=== PATIENT | male | born 1985 | race American Indian/Alaskan Native ===

== ENCOUNTER 2019-02-22 22:12 | Emergency (ER) | payer OTHER ==
[2019-02-23] MEDS ORDERED: DELTASONE PO ONE (03:36)
[2019-02-23] MEDS ORDERED: IBUPROFEN PO ONE (03:36)
--- NOTE | 2019-02-23 03:42 | Emergency Department Report ---
ED General Adult HPI - General Chief complaint: Nausea/Vomiting/Diarrhea Stated complaint: SOB/BACK PAIN/HEAD PAINS/COLD CHILLS Time Seen by Provider: 02/23/19 03:36 Source: patient Mode of arrival: Ambulatory Limitations: No Limitations - History of Present Illness Initial comments: Patient state that 3-year-old -Maced[place] male with a history of asthma and bronchitis who presents tonight for symptoms of same and low back pain is no dysuria no frequency no urgency there's been no fall or injury or trauma patient states back pain is chronic condition for the last 14 years , pt state he is here tonight for medication refill. pt denies sob no weezing or truam Onset/Timin -: days(s) Radiation: non-radiation Severity scale (0 -10): 4 Quality: sharp, dull Consistency: intermittent Improves with: movement Worsens with: rest Associated Symptoms: cough Treatments Prior to Arrival: none - Related Data Previous Rx's Medication Instructions Recorded Last Taken Type Cyclobenzaprine [Flexeril] 10 mg PO BID PRN #30 tablet 08/02/16 Unknown Rx Diclofenac Sodium 75 mg PO BID PRN #20 tablet. 08/02/16 Unknown Rx Cyclobenzaprine [Flexeril] 10 mg PO TID PRN 20 Days #30 tablet 02/23/19 Unknown Rx Menthol/Camphor [[place] 1 gm TP QID PRN 10 Days #1 tube 02/23/19 Unknown Rx Ointment] Naproxen [Naprosyn] 500 mg PO BID #30 tablet 02/23/19 Unknown Rx Allergies Allergy/AdvReac Type Severity Reaction Status Date / Time iodine Allergy Anaphylaxis Verified 08/02/16 19:20 shellfish derived Allergy Anaphylaxis Verified 08/02/16 19:20 ED Review of Systems ROS: Stated complaint: SOB/BACK PAIN/HEAD PAINS/COLD CHILLS Other details as noted in HPI Constitutional: denies: chills, fever Eyes: denies: eye pain, eye discharge, vision change ENT: denies: ear pain, throat pain Respiratory: cough. denies: shortness of breath, wheezing Cardiovascular: denies: chest pain, palpitations, dyspnea on exertion, edema, syncope, paroxysmal nocturnal dyspnea Endocrine: no symptoms reported Gastrointestinal: denies: abdominal pain, nausea, diarrhea Genitourinary: denies: urgency, dysuria Musculoskeletal: back pain. denies: joint swelling, arthralgia Skin: denies: rash, lesions Neurological: denies: headache, weakness, numbness, paresthesias, confusion, abnormal gait, vertigo Psychiatric: denies: anxiety, depression Hematological/Lymphatic: denies: easy bleeding, easy bruising ED Past Medical Hx - Past Medical History Hx Asthma: Yes Additional medical history: chronic back pain - Social History Smoking Status: Never Smoker Substance Use Type: None - Medications Home Medications: Home Medications Medication Instructions Recorded Confirmed Last Taken Type Cyclobenzaprine [Flexeril] 10 mg PO BID PRN #30 tablet 08/02/16 Unknown Rx Diclofenac Sodium 75 mg PO BID PRN #20 tablet.dr 08/02/16 Unknown Rx Cyclobenzaprine [Flexeril] 10 mg PO TID PRN 20 Days #30 tablet 02/23/19 Unknown Rx Menthol/Camphor [[place] 1 gm TP QID PRN 10 Days #1 tube 02/23/19 Unknown Rx Ointment] Naproxen [Naprosyn] 500 mg PO BID #30 tablet 02/23/19 Unknown Rx ED Physical Exam - General Limitations: No Limitations General appearance: alert, in no apparent distress - Head Head exam: Present: atraumatic, normocephalic, normal inspection, other - Eye Eye exam: Present: normal appearance, PERRL, EOMI Pupils: Present: normal accommodation - ENT ENT exam: Present: normal exam, normal orophraynx, mucous membranes moist, normal external ear exam - Neck Neck exam: Present: normal inspection, meningismus, full ROM. Absent: tenderness, lymphadenopathy, thyromegaly - Respiratory Respiratory exam: Present: normal lung sounds bilaterally. Absent: respiratory distress, wheezes, stridor, chest wall tenderness - Cardiovascular Cardiovascular Exam: Present: regular rate, normal rhythm, normal heart sounds. Absent: gallop - GI/Abdominal GI/Abdominal exam: Present: soft, tenderness, normal bowel sounds. Absent: guarding, rebound, mass, bruit, hernia - Rectal Rectal exam: Present: deferred - exam: Present: normal inspection - Extremities Exam Extremities exam: Present: normal inspection, full ROM, normal capillary refill. Absent: tenderness, pedal edema, joint swelling, calf tenderness - Back Exam Back exam: Present: normal inspection, full ROM. Absent: CVA tenderness (R), CVA tenderness (L), muscle spasm, paraspinal tenderness - Neurological Exam Neurological exam: Present: alert, oriented X3, CN II-XII intact, normal gait, reflexes normal - Psychiatric Psychiatric exam: Present: normal affect, normal mood - Skin Skin exam: Present: warm, dry, intact, normal color. Absent: rash ED Course Vital Signs 02/22/19 02/22/19 22:20 23:33 Temperature 99.0 F 99.0 F Pulse Rate 103 H 88 Respiratory 18 18 Rate Blood Pressure 126/80 124/80 O2 Sat by Pulse 98 98 Oximetry Critical care attestation.: If time is entered above; I have spent that time in minutes in the direct care of this critically ill patient, excluding procedure time. ED Disposition Clinical Impression: URI (upper respiratory infection) Qualifiers: URI type: unspecified viral URI Qualified Code(s): J06.9 - Acute upper respiratory infection, unspecified Disposition: DC/TX-06 HOME UNDER HOME HLTH Is pt being admited?: No Does the pt Need Aspirin: No Condition: Good Instructions: Acute Bronchitis (ED), Chronic Bronchitis (ED) Prescriptions: Cyclobenzaprine [Flexeril] 10 mg PO TID PRN 20 Days #30 tablet PRN Reason: Muscle Spasm Naproxen [Naprosyn] 500 mg PO BID #30 tablet Menthol/Camphor [[place] Ointment] 1 gm TP QID PRN 10 Days #1 tube PRN Reason: pain Referrals: [facility] [Provider Group] - 3-5 Days Forms: Work/School Release Form(ED) Time of Disposition: 04:06
[2019-02-23 04:33] VITALS: BP 126/81
== END 2019-02-23 04:32 | disposition home health service (06) ==
LOC: ED 22:12
DX: J06.9 Acute upper respiratory infection, unspecified (principal); J45.909 Unspecified asthma, uncomplicated; G89.29 Other chronic pain; Z91.013 Allergy to seafood; Z91.040 Latex allergy status
CPT/HCPCS: 99282; J7512

== ENCOUNTER 2019-05-29 22:32 | Emergency (ER) | payer SELFPAY ==
[2019-05-29 23:25] VITALS: BP 133/73
[2019-05-30] MEDS ORDERED: BACTRIM DS PO ONE (01:22)
[2019-05-30] MEDS ORDERED: NORCO 5/325 PO ONE (01:22)
--- NOTE | 2019-05-30 01:45 | XRay Report ---
RIGHT LOWER LEG 2 VIEWS INDICATION / CLINICAL INFORMATION: Right jose pain, swelling and redness for 4 days. COMPARISON: None available. FINDINGS: BONES / JOINT(S): No acute fracture or subluxation. No significant arthritis. SOFT TISSUES: There is mild soft tissue swelling at the level of the mid tibial shaft anteriorly with out focal mass or soft tissue gas. I do not identify a radiopaque foreign body. ADDITIONAL FINDINGS: None. IMPRESSION: Mild soft tissue swelling without acute osseous abnormality. Signer Name: Raghavendra Evans MD Signed: 05/30/2019 1:40 AM Workstation Name: [id number]
--- NOTE | 2019-05-30 02:00 | Emergency Department Report ---
HPI - General Chief Complaint: Extremity Injury, Lower Time Seen by Provider: 05/30/19 01:21 - HPI HPI: 33 year-old -Sammar[place] male presents to the emergency department with a complaint of right leg pain and swelling for the past 3 days. Initially the patient thought that he may have been stung or bitten by something while he was working out in the yard. He also thought maybe it could be an allergic reaction. At first he had a small pimple-like lesion to the right distal jose and some itching. However, over the next few days, he has had swelling of the leg and the previous pimple-like lesion has now grown in size, become painful, red and warm. He's been trying some cold compresses which does help with the leg swelling but has not improved the lesion. The patient says that he feels discomfort all the way up to his upper thigh. He has a past medical history of asthma and some chronic back pain. He has taken some Benadryl without much relief. No recent travel or sick contacts at home. ED Past Medical Hx - Past Medical History Previous Medical History?: Yes Hx Asthma: Yes Additional medical history: chronic back pain - Surgical History Past Surgical History?: No - Social History Smoking Status: Never Smoker Substance Use Type: None - Medications Home Medications: Home Medications Medication Instructions Recorded Confirmed Last Taken Type Cyclobenzaprine [Flexeril] 10 mg PO BID PRN #30 tablet 08/02/16 Unknown Rx Diclofenac Sodium 75 mg PO BID PRN #20 tablet. 08/02/16 Unknown Rx ALBUTEROL Inhaler(NF) [VENTOLIN 2 puff IH QID PRN #1 inha 02/23/19 Unknown Rx Inhaler(NF)] Cyclobenzaprine [Flexeril] 10 mg PO TID PRN 20 Days #30 tablet 02/23/19 Unknown Rx Menthol/Camphor [[place] 1 gm TP QID PRN 10 Days #1 tube 02/23/19 Unknown Rx Ointment] Naproxen [Naprosyn] 500 mg PO BID #30 tablet 02/23/19 Unknown Rx HYDROcodone/APAP 5-325 [[place] 1 each PO Q6HR PRN #10 tablet 05/30/19 Unknown Rx 5/325] Sulfamethoxazole/Trimethoprim 1 each PO BID #14 tablet 05/30/19 Unknown Rx [Bactrim DS TAB] ED Review of Systems ROS: Stated complaint: SPIDER BITE ON LEG Other details as noted in HPI Comment: All other systems reviewed and negative Constitutional: denies: chills, fever Musculoskeletal: arthralgia, myalgia Skin: rash, lesions, pruritus Physical Exam - Physical Exam Vital Signs: Vital Signs 05/29/19 23:21 Temperature 98.4 F Pulse Rate 95 H Respiratory 18 Rate Blood Pressure 133/73 O2 Sat by Pulse 98 Oximetry Physical Exam: GENERAL: The patient is well-developed well-nourished. HENT: Normocephalic. Atraumatic. Patient has moist mucous membranes. EYES: Extraocular motions are intact. NECK: Supple. Trachea is midline. CHEST/LUNGS: Clear to auscultation. There is no respiratory distress noted. HEART/CARDIOVASCULAR: Regular. There is no tachycardia. There is no murmur. ABDOMEN: Abdomen is soft, nontender. Patient has normal bowel sounds. There is no abdominal distention. SKIN: There is some nonpitting swelling of the distal right lower extremity. The patient has a rash or lesion to the distal anterior tib-fib that is slightly elevated, erythematous, warm and is about 4 inches in its greatest diameter. There is no underlying fluctuance. Some of the surrounding portion of this lesion appears to have a blisterlike or bulla appearance but is negative for [place]. NEURO: The patient is awake, alert, and oriented. The patient is cooperative. The patient has no focal neurologic deficits. The patient has normal speech. MUSCULOSKELETAL: There is some tenderness to palpation to the right distal leg where the patient has this rash or lesion. +2 over 4 dorsalis pedis pulse and capillary refill less than 2 seconds to the affected right lower extremity. ED Course Vital Signs 05/29/19 23:21 Temperature 98.4 F Pulse Rate 95 H Respiratory 18 Rate Blood Pressure 133/73 O2 Sat by Pulse 98 Oximetry ED Medical Decision Making - Lab Data Result diagrams: 05/30/19 01:58 - Radiology Data Radiology results: image reviewed interpreted by me: X-ray of right tib-fib does not show any fracture, dislocation, subcutaneous gas or signs of osteomyelitis. - Medical Decision Making Patient appears to have some type of cellulitis and abscess to the right distal anterior tib-fib. X-ray does not show any signs of osteomyelitis or subcutaneous gas. He had a CBC that does not show any leukocytosis. Vital signs stable including being afebrile. He does not appear to have any systemic infection at this time. The patient has some complaints of pain towards the up per thigh and groin. This may be secondary to the soft tissue swelling in the distal lower extremity or evidence of some lymphadenopathy. However the patient will be set up to have a right lower extremity venous Doppler tomorrow. If positive, he will be redirected to the emergency department. If negative, he has been given a referral for primary care and dermatology. He has been placed on antibiotics. He has been instructed to return to the emergency department with any worsening of his symptoms or any acute distress. - Differential Diagnosis abscess, cellulitis, osteomyelitis, dermatitis Critical Care Time: No Critical care attestation.: If time is entered above; I have spent that time in minutes in the direct care of this critically ill patient, excluding procedure time. ED Disposition Clinical Impression: Cellulitis of right leg without foot, Abscess of leg, right Disposition: DC- TO HOME OR SELFCARE Is pt being admited?: No Condition: Stable Instructions: Cellulitis (ED), Abscess (ED) Additional Instructions: He will be contacted tomorrow by the instrumentation and controls technician for a time to return to get the Doppler ultrasound done of your right leg to rule out a blood clot. It appears positive for a blood clot, called a DVT, then you will be redirected to the emergency department after this imaging study is completed. If negative, he will need to follow up with a primary care physician and/or fire management officer. Take the antibiotics as prescribed. Return to the emergency Department with any worsening of your symptoms, including increased pain, new pain, increased swelling or redness, development of fever, or with any acute distress. You have been prescribed a medication that is sedating and therefore should not be taken prior to driving, working, and responsible for children and in no way s hould be mixed with alcohol of any quantity. Prescriptions: Sulfamethoxazole/Trimethoprim [Bactrim DS TAB] 1 each PO BID #14 tablet HYDROcodone/APAP 5-325 [[place] 5/325] 1 each PO Q6HR PRN #10 tablet PRN Reason: Pain Referrals: [facility] [Outside] - 2-3 Days TUNDE LÓPEZ MD [Staff Physician] - 2-3 Days EVERETTE LIVE MD [Staff Physician] - 2-3 Days Time of Disposition: 02:12
[2019-05-30 02:08] LABS: Basophils % (Auto) 0.5 % (0.0-1.8); Eosinophils # (Auto) 0.1 K/mm3 (0.0-0.4); Eosinophils % (Auto) 1.6 % (0.0-4.3); Hematocrit 43.2 % (35.5-45.6); Hemoglobin 14.5 gm/dl (11.8-15.2); Lymphocytes # (Auto) 1.8 K/mm3 (1.2-5.4); Lymphocytes % (Auto) 33.5 % (13.4-35.0); Mean Corpuscular HGB Conc 34 % (32-34); Mean Corpuscular Volume 91 fl (84-94); Monocytes # (Auto) 0.6 K/mm3 (0.0-0.8); Monocytes % (Auto) 11.1 % (0.0-7.3); Platelet Count 169 K/mm3 (140-440); Red Blood Count 4.76 M/mm3 (3.65-5.03); Red Cell Distribution Width 13.2 % (13.2-15.2)
== END 2019-05-30 02:28 | disposition home or self-care (01) ==
LOC: ED 22:32
DX: L03.115 Cellulitis of right lower limb (principal); J45.909 Unspecified asthma, uncomplicated; M54.5 Low back pain; G89.29 Other chronic pain; Z79.899 Other long term (current) drug therapy; Z91.041 Radiographic dye allergy status; Z91.013 Allergy to seafood
CPT/HCPCS: 36415; 85025; 99284

== ENCOUNTER 2019-06-04 14:26 | Outpatient (CLI) | payer SELFPAY ==
--- NOTE | 2019-06-04 15:33 | Vascular Lab Report ---
DUPLEX DOPPLER LOWER EXTREMITY VEINS, RIGHT INDICATION: Right lower extremity pain and swelling. TECHNIQUE: Duplex doppler imaging was performed through the veins of the right lower extremity using venous compression and other maneuvers. COMPARISON: No relevant prior imaging study available. FINDINGS: Right Common femoral vein: Negative. Right Superficial femoral vein: Negative. Right Popliteal vein: Negative. Right Calf veins: Negative. Additional findings: None.. IMPRESSION: No sonographic evidence for DVT in the right lower extremity. Signer Name: Miky Gomez Jr, MD Signed: 06/04/2019 3:28 PM Workstation Name: [id number]
== END 2019-06-04 14:27 | disposition home or self-care (01) ==
LOC: VAS 14:26
PROVIDERS: ATTEND Emergency Medicine
DX: T63.301A Toxic effect of unspecified spider venom, accidental (unintentional), initial encounter (principal); L02.415 Cutaneous abscess of right lower limb; J45.909 Unspecified asthma, uncomplicated; Y93.89 Activity, other specified; Y99.8 Other external cause status; Y92.89 Other specified places as the place of occurrence of the external cause

== ENCOUNTER 2019-09-05 05:32 | Emergency (ER) | payer SELFPAY ==
--- NOTE | 2019-09-05 06:26 | Emergency Department Report ---
ED General Adult HPI - General Chief complaint: Anxiety Stated complaint: BODY PAIN/CHEST PAIN Time Seen by Provider: 09/05/19 06:09 Source: patient Mode of arrival: Ambulatory Limitations: No Limitations - History of Present Illness Initial comments: This is a 33 year old man states he drove himself here because he has "flu symptoms". He states that he was held in [facility] yesterday. Wrist restraints were used. He states that he works for [employer] through an agency. He states that while he was at the alf he was told that he is not associated with the Police Department. He was released at about 4:00 in the afternoon last night. Other than the wrist restraints and tingling in that area he reports no other "assault". His flu symptoms include nonproductive cough, headache, myalgias. He's felt as if he had a fever but did not measure it. He denies a history of HIV but states he has no recent testing. He states he has lymph nodes in the back of his neck which "flareup" when he gets "sick". He does not report nausea vomiting photophobia or neck stiffness. His headache pain is mild this time. He reports no history of serious bacterial infection or other illness. Does admit to previous prescription for a "blue and white mood stabilizer". He states he does not take this because of the way it makes him feel. He denies any psychiatric hospitalization. He is appropriate, cooperative with no HI or SI. -: hour(s) Location: head Radiation: non-radiation Quality: aching ([id number]) Consistency: intermittent Improves with: none Worsens with: none Associated Symptoms: denies other symptoms, cough (nonproductive) Treatments Prior to Arrival: none - Related Data Previous Rx's Medication Instructions Recorded Last Taken Type Cyclobenzaprine [Flexeril] 10 mg PO BID PRN #30 tablet 08/02/16 Unknown Rx Diclofenac Sodium 75 mg PO BID PRN #20 tablet. 08/02/16 Unknown Rx ALBUTEROL Inhaler(NF) [VENTOLIN 2 puff IH QID PRN #1 inha 02/23/19 Unknown Rx Inhaler(NF)] Cyclobenzaprine [Flexeril] 10 mg PO TID PRN 20 Days #30 tablet 02/23/19 Unknown Rx Menthol/Camphor [[place] 1 gm TP QID PRN 10 Days #1 tube 02/23/19 Unknown Rx Ointment] Naproxen [Naprosyn] 500 mg PO BID #30 tablet 02/23/19 Unknown Rx HYDROcodone/APAP 5-325 [[place] 1 each PO Q6HR PRN #10 tablet 05/30/19 Unknown Rx 5/325] Sulfamethoxazole/Trimethoprim 1 each PO BID #14 tablet 05/30/19 Unknown Rx [Bactrim DS TAB] Sulfamethoxazole/Trimethoprim 1 each PO BID #14 tablet 09/05/19 Unknown Rx [Bactrim DS TAB] Allergies Allergy/AdvReac Type Severity Reaction Status Date / Time iodine Allergy Anaphylaxis Verified 08/02/16 19:20 shellfish derived Allergy Anaphylaxis Verified 08/02/16 19:20 ED Review of Systems ROS: Stated complaint: BODY PAIN/CHEST PAIN Other details as noted in HPI Constitutional: fever. denies: chills Eyes: denies: eye pain, eye discharge, vision change ENT: denies: ear pain, throat pain Respiratory: cough. denies: shortness of breath, wheezing Cardiovascular: denies: chest pain, palpitations Endocrine: no symptoms reported Gastrointestinal: denies: abdominal pain, nausea, diarrhea Genitourinary: denies: urgency, dysuria Musculoskeletal: denies: back pain, joint swelling, arthralgia Skin: denies: rash, lesions Neurological: as per HPI, headache. denies: weakness, paresthesias Psychiatric: denies: anxiety, depression Hematological/Lymphatic: denies: easy bleeding, easy bruising ED Past Medical Hx - Past Medical History Previous Medical History?: Yes Hx Asthma: Yes Additional medical history: chronic back pain - Surgical History Past Surgical History?: No - Social History Smoking Status: Never Smoker Substance Use Type: None - Medications Home Medications: Home Medications Medication Instructions Recorded Confirmed Last Taken Type Cyclobenzaprine [Flexeril] 10 mg PO BID PRN #30 tablet 08/02/16 Unknown Rx Diclofenac Sodium 75 mg PO BID PRN #20 tablet. 08/02/16 Unknown Rx ALBUTEROL Inhaler(NF) [VENTOLIN 2 puff IH QID PRN #1 inha 02/23/19 Unknown Rx Inhaler(NF)] Cyclobenzaprine [Flexeril] 10 mg PO TID PRN 20 Days #30 tablet 02/23/19 Unknown Rx Menthol/Camphor [[place] 1 gm TP QID PRN 10 Days #1 tube 02/23/19 Unknown Rx Ointment] Naproxen [Naprosyn] 500 mg PO BID #30 tablet 02/23/19 Unknown Rx HYDROcodone/APAP 5-325 [[place] 1 each PO Q6HR PRN #10 tablet 05/30/19 Unknown Rx 5/325] Sulfamethoxazole/Trimethoprim 1 each PO BID #14 tablet 05/30/19 Unknown Rx [Bactrim DS TAB] Sulfamethoxazole/Trimethoprim 1 each PO BID #14 tablet 09/05/19 Unknown Rx [Bactrim DS TAB] ED Physical Exam - General Limitations: No Limitations General appearance: alert, in no apparent distress - Head Head exam: Present: atraumatic, normocephalic - Eye Eye exam: Present: normal appearance - ENT ENT exam: Present: normal orophraynx, mucous membranes moist - Neck Neck exam: Present: normal inspection, full ROM, lymphadenopathy (small posterior cervical lymph nodes noted on the right). Absent: tenderness, meningismus, thyromegaly - Respiratory Respiratory exam: Present: normal lung sounds bilaterally. Absent: respiratory distress - Cardiovascular Cardiovascular Exam: Present: regular rate, normal rhythm. Absent: systolic murmur, diastolic murmur, rubs, gallop - GI/Abdominal GI/Abdominal exam: Present: soft, normal bowel sounds. Absent: distended, tenderness, guarding, rebound - Rectal Rectal exam: Present: deferred - Extremities Exam Extremities exam: Present: normal inspection, normal capillary refill - Back Exam Back exam: Present: normal inspection - Neurological Exam Neurological exam: Present: alert, oriented X3, CN II-XII intact. Absent: motor sensory deficit - Psychiatric Psychiatric exam: Present: normal affect, normal mood - Skin Skin exam: Present: warm, dry, intact, normal color. Absent: rash ED Course Vital Signs 09/05/19 09/05/19 09/05/19 05:35 06:36 06:43 Temperature 100.1 F H Pulse Rate 104 H Respiratory 18 20 20 Rate Blood Pressure 149/99 Blood Pressure [Right] O2 Sat by Pulse 95 97 Oximetry 09/05/19 09:45 Temperature 99.3 F Pulse Rate 95 H Respiratory Rate Blood Pressure Blood Pressure 125/58 [Right] O2 Sat by Pulse 98 Oximetry - Reevaluation(s) Reevaluation #1: The patient was given just Tylenol. He states his headache totally resolved. He states he feels much better. I have advised him of his low white blood cell count. He does need HIV testing. I'm going to refer him to the [facility] for follow-up care and further testing. Return criteria have been given. He states he feels back to normal at this point. Would like something for cough. I'm going to place him on Bactrim. 09/05/19 10:35 ED Medical Decision Making - Lab Data Result diagrams: 09/05/19 06:41 09/05/19 06:41 Laboratory Results - last 24 hr 09/05/19 06:41 WBC 2.6 L RBC 5.06 H Hgb 15.1 Hct 45.2 MCV 90 MCH 30 MCHC 34 RDW 12.9 L Plt Count 161 Cook % (Auto) Customer Operations Associate Laboratory Results - last 24 hr 09/05/19 09/05/19 09/05/19 06:41 06:41 07:20 WBC 2.6 L RBC 5.06 H Hgb 15.1 Hct 45.2 MCV 90 MCH 30 MCHC 34 RDW 12.9 L Plt Count 161 Cook % (Auto) Customer Operations Associate Sodium 139 Potassium 3.4 L Chloride 98.1 Carbon Dioxide 24 Anion Gap 20 BUN 13 Creatinine 1.1 Estimated GFR > 60 BUN/Creatinine Ratio 12 Glucose 95 Calcium 9.1 Magnesium 2.00 Total Bilirubin 0.60 Direct Bilirubin < 0.2 Indirect Bilirubin 0.4 AST 33 ALT 21 Alkaline Phosphatase 40 Total Creatine Kinase 547 H CK-MB (CK-2) 2.2 CK-MB (CK-2) Rel Index 0.4 Total Protein 7.8 Albumin 4.4 Albumin/Globulin Ratio 1.3 Urine Color Yellow Urine Turbidity Clear Urine pH 6.0 Ur Specific [place] 1.026 Urine Protein 30 mg/dl Urine Glucose (UA) Neg Urine Ketones Neg Urine Blood Neg Urine Nitrite Neg Urine Bilirubin Neg Urine Urobilinogen 2.0 Ur Leukocyte Esterase Neg Urine WBC (Auto) 2.0 Urine RBC (Auto) 1.0 Urine Mucus Few Laboratory Results - last 24 hr 09/05/19 09/05/19 09/05/19 06:41 06:41 07:20 WBC 2.6 L RBC 5.06 H Hgb 15.1 Hct 45.2 MCV 90 MCH 30 MCHC 34 RDW 12.9 L Plt Count 161 Cook % (Auto) Customer Operations Associate Sodium 139 Potassium 3.4 L Chloride 98.1 Carbon Dioxide 24 Anion Gap 20 BUN 13 Creatinine 1.1 Estimated GFR > 60 BUN/Creatinine Ratio 12 Glucose 95 Calcium 9.1 Magnesium 2.00 Total Bilirubin 0.60 Direct Bilirubin < 0.2 Indirect Bilirubin 0.4 AST 33 ALT 21 Alkaline Phosphatase 40 Total Creatine Kinase 547 H CK-MB (CK-2) 2.2 CK-MB (CK-2) Rel Index 0.4 Total Protein 7.8 Albumin 4.4 Albumin/Globulin Ratio 1.3 Urine Color Yellow Urine Turbidity Clear Urine pH 6.0 Ur Specific [place] 1.026 Urine Protein 30 mg/dl Urine Glucose (UA) Neg Urine Ketones Neg Urine Blood Neg Urine Nitrite Neg Urine Bilirubin Neg Urine Urobilinogen 2.0 Ur Leukocyte Esterase Neg Urine WBC (Auto) 2.0 Urine RBC (Auto) 1.0 Urine Mucus Few Laboratory Results - last 24 hr 09/05/19 09/05/19 09/05/19 06:41 06:41 07:20 WBC 2.6 L RBC 5.06 H Hgb 15.1 Hct 45.2 MCV 90 MCH 30 MCHC 34 RDW 12.9 L Plt Count 161 Cook % (Auto) Customer Operations Associate Sodium 139 Potassium 3.4 L Chloride 98.1 Carbon Dioxide 24 Anion Gap 20 BUN 13 Creatinine 1.1 Estimated GFR > 60 BUN/Creatinine Ratio 12 Glucose 95 Calcium 9.1 Magnesium 2.00 Total Bilirubin 0.60 Direct Bilirubin < 0.2 Indirect Bilirubin 0.4 AST 33 ALT 21 Alkaline Phosphatase 40 Total Creatine Kinase 547 H CK-MB (CK-2) 2.2 CK-MB (CK-2) Rel Index 0.4 Total Protein 7.8 Albumin 4.4 Albumin/Globulin Ratio 1.3 Urine Color Yellow Urine Turbidity Clear Urine pH 6.0 Ur Specific [place] 1.026 Urine Protein 30 mg/dl Urine Glucose (UA) Neg Urine Ketones Neg Urine Blood Neg Urine Nitrite Neg Urine Bilirubin Neg Urine Urobilinogen 2.0 Ur Leukocyte Esterase Neg Urine WBC (Auto) 2.0 Urine RBC (Auto) 1.0 Urine Mucus Few Laboratory Results - last 24 hr 09/05/19 09/05/19 09/05/19 06:41 06:41 07:20 WBC 2.6 L RBC 5.06 H Hgb 15.1 Hct 45.2 MCV 90 MCH 30 MCHC 34 RDW 12.9 L Plt Count 161 Cook % (Auto) Customer Operations Associate Sodium 139 Potassium 3.4 L Chloride 98.1 Carbon Dioxide 24 Anion Gap 20 BUN 13 Creatinine 1.1 Estimated GFR > 60 BUN/Creatinine Ratio 12 Glucose 95 Calcium 9.1 Magnesium 2.00 Total Bilirubin 0.60 Direct Bilirubin < 0.2 Indirect Bilirubin 0.4 AST 33 ALT 21 Alkaline Phosphatase 40 Total Creatine Kinase 547 H CK-MB (CK-2) 2.2 CK-MB (CK-2) Rel Index 0.4 Total Protein 7.8 Albumin 4.4 Albumin/Globulin Ratio 1.3 Urine Color Yellow Urine Turbidity Clear Urine pH 6.0 Ur Specific [place] 1.026 Urine Protein 30 mg/dl Urine Glucose (UA) Neg Urine Ketones Neg Urine Blood Neg Urine Nitrite Neg Urine Bilirubin Neg Urine Urobilinogen 2.0 Ur Leukocyte Esterase Neg Urine WBC (Auto) 2.0 Urine RBC (Auto) 1.0 Urine Mucus Few Urine Opiates Screen Urine Methadone Screen Ur Barbiturates Screen Ur Phencyclidine Scrn Ur Amphetamines Screen U Benzodiazepines Scrn Urine Cocaine Screen U Marijuana (THC) Screen Drugs of Abuse Note 09/05/19 Unknown WBC RBC Hgb Hct MCV MCH MCHC RDW Plt Count [place] % (Auto) Sodium Potassium Chloride Carbon Dioxide Anion Gap BUN Creatinine Estimated GFR BUN/Creatinine Ratio Glucose Calcium Magnesium Total Bilirubin Direct Bilirubin Indirect Bilirubin AST ALT Alkaline Phosphatase Total Creatine Kinase CK-MB (CK-2) CK-MB (CK-2) Rel Index Total Protein Albumin Albumin/Globulin Ratio Urine Color Urine Turbidity Urine pH Ur Specific [place] Urine Protein Urine Glucose (UA) Urine Ketones Urine Blood Urine Nitrite Urine Bilirubin Urine Urobilinogen Ur Leukocyte Esterase Urine WBC (Auto) Urine RBC (Auto) Urine Mucus Urine Opiates Screen Presumptive negative Urine Methadone Screen Presumptive negative Ur Barbiturates Screen Presumptive negative Ur Phencyclidine Scrn Presumptive negative Ur Amphetamines Screen Presumptive negative U Benzodiazepines Scrn Presumptive negative Urine Cocaine Screen Presumptive negative U Marijuana (THC) Screen Presumptive positive Drugs of Abuse Note Disclamer Laboratory Results - last 24 hr 09/05/19 09/05/19 09/05/19 06:41 06:41 07:20 WBC 2.6 L RBC 5.06 H Hgb 15.1 Hct 45.2 MCV 90 MCH 30 MCHC 34 RDW 12.9 L Plt Count 161 Cook % (Auto) Customer Operations Associate Sodium 139 Potassium 3.4 L Chloride 98.1 Carbon Dioxide 24 Anion Gap 20 BUN 13 Creatinine 1.1 Estimated GFR > 60 BUN/Creatinine Ratio 12 Glucose 95 Calcium 9.1 Magnesium 2.00 Total Bilirubin 0.60 Direct Bilirubin < 0.2 Indirect Bilirubin 0.4 AST 33 ALT 21 Alkaline Phosphatase 40 Total Creatine Kinase 547 H CK-MB (CK-2) 2.2 CK-MB (CK-2) Rel Index 0.4 Total Protein 7.8 Albumin 4.4 Albumin/Globulin Ratio 1.3 Urine Color Yellow Urine Turbidity Clear Urine pH 6.0 Ur Specific [place] 1.026 Urine Protein 30 mg/dl Urine Glucose (UA) Neg Urine Ketones Neg Urine Blood Neg Urine Nitrite Neg Urine Bilirubin Neg Urine Urobilinogen 2.0 Ur Leukocyte Esterase Neg Urine WBC (Auto) 2.0 Urine RBC (Auto) 1.0 Urine Mucus Few Urine Opiates Screen Urine Methadone Screen Ur Barbiturates Screen Ur Phencyclidine Scrn Ur Amphetamines Screen U Benzodiazepines Scrn Urine Cocaine Screen U Marijuana (THC) Screen Drugs of Abuse Note 09/05/19 Unknown WBC RBC Hgb Hct MCV MCH MCHC RDW Plt Count [place] % (Auto) Sodium Potassium Chloride Carbon Dioxide Anion Gap BUN Creatinine Estimated GFR BUN/Creatinine Ratio Glucose Calcium Magnesium Total Bilirubin Direct Bilirubin Indirect Bilirubin AST ALT Alkaline Phosphatase Total Creatine Kinase CK-MB (CK-2) CK-MB (CK-2) Rel Index Total Protein Albumin Albumin/Globulin Ratio Urine Color Urine Turbidity Urine pH Ur Specific [place] Urine Protein Urine Glucose (UA) Urine Ketones Urine Blood Urine Nitrite Urine Bilirubin Urine Urobilinogen Ur Leukocyte Esterase Urine WBC (Auto) Urine RBC (Auto) Urine Mucus Urine Opiates Screen Presumptive negative Urine Methadone Screen Presumptive negative Ur Barbiturates Screen Presumptive negative Ur Phencyclidine Scrn Presumptive negative Ur Amphetamines Screen Presumptive negative U Benzodiazepines Scrn Presumptive negative Urine Cocaine Screen Presumptive negative U Marijuana (THC) Screen Presumptive positive Drugs of Abuse Note Disclamer Laboratory Results - last 24 hr 09/05/19 09/05/19 09/05/19 06:41 06:41 07:20 WBC 2.6 L RBC 5.06 H Hgb 15.1 Hct 45.2 MCV 90 MCH 30 MCHC 34 RDW 12.9 L Plt Count 161 Cook % (Auto) Customer Operations Associate Add Manual Diff Complete Total Counted 100 Seg Neuts % (Manual) 39.0 L Band Neutrophils % 0 Lymphocytes % (Manual) 46.0 H Reactive Lymphs % (Man) 0 Monocytes % (Manual) 14.0 H Eosinophils % (Manual) 0 Basophils % (Manual) 1.0 Metamyelocytes % 0 Myelocytes % 0 Promyelocytes % 0 Blast Cells % 0 Nucleated RBC % Not Reportable Seg Neutrophils # Man 1.0 L Band Neutrophils # 0.0 Lymphocytes # (Manual) 1.2 Abs React Lymphs (Man) 0.0 Monocytes # (Manual) 0.4 Eosinophils # (Manual) 0.0 Basophils # (Manual) 0.0 Metamyelocytes # 0.0 Myelocytes # 0.0 Promyelocytes # 0.0 Blast Cells # 0.0 WBC Morphology Not Reportable Hypersegmented Neuts Not Reportable Hyposegmented Neuts Not Reportable Hypogranular Neuts Not Reportable Smudge Cells Not Reportable Toxic Granulation Not Reportable Toxic Vacuolation Not Reportable Dohle Bodies Not Reportable Pelger-Huet Anomaly Not Reportable Cherelle Rods Not Reportable Platelet Estimate Consistent w auto Clumped Platelets Not Reportable Plt Clumps, EDTA Not Reportable Large Platelets Not Reportable Giant Platelets Not Reportable Platelet Satelliting Not Reportable Plt Morphology Comment Not Reportable RBC Morphology Normal Dimorphic RBCs Not Reportable Polychromasia Not Reportable Hypochromasia Not Reportable Poikilocytosis Not Reportable Anisocytosis Not Reportable Microcytosis Not Reportable Macrocytosis Not Reportable Spherocytes Not Reportable Pappenheimer Bodies Not Reportable Sickle Cells Not Reportable Target Cells Not Reportable Tear Drop Cells Not Reportable Ovalocytes Not Reportable Helmet Cells Not Reportable [place] Bodies Not Reportable [place] Rings Not Reportable [place] Cells Not Reportable Bite Cells Not Reportable Crenated Cell Not Reportable Elliptocytes Not Reportable Acanthocytes (Spur) Not Reportable Rouleaux Not Reportable Hemoglobin C Crystals Not Reportable Schistocytes Not Reportable Malaria parasites Not Reportable John Bodies Not Reportable Hem Pathologist Commnt No Sodium 139 Potassium 3.4 L Chloride 98.1 Carbon Dioxide 24 Anion Gap 20 BUN 13 Creatinine 1.1 Estimated GFR > 60 BUN/Creatinine Ratio 12 Glucose 95 Calcium 9.1 Magnesium 2.00 Total Bilirubin 0.60 Direct Bilirubin < 0.2 Indirect Bilirubin 0.4 AST 33 ALT 21 Alkaline Phosphatase 40 Total Creatine Kinase 547 H CK-MB (CK-2) 2.2 CK-MB (CK-2) Rel Index 0.4 Total Protein 7.8 Albumin 4.4 Albumin/Globulin Ratio 1.3 Urine Color Yellow Urine Turbidity Clear Urine pH 6.0 Ur Specific [place] 1.026 Urine Protein 30 mg/dl Urine Glucose (UA) Neg Urine Ketones Neg Urine Blood Neg Urine Nitrite Neg Urine Bilirubin Neg Urine Urobilinogen 2.0 Ur Leukocyte Esterase Neg Urine WBC (Auto) 2.0 Urine RBC (Auto) 1.0 Urine Mucus Few Urine Opiates Screen Urine Methadone Screen Ur Barbiturates Screen Ur Phencyclidine Scrn Ur Amphetamines Screen U Benzodiazepines Scrn Urine Cocaine Screen U Marijuana (THC) Screen Drugs of Abuse Note 09/05/19 Unknown WBC RBC Hgb Hct MCV MCH MCHC RDW Plt Count [place] % (Auto) Add Manual Diff Total Counted Seg Neuts % (Manual) Band Neutrophils % Lymphocytes % (Manual) Reactive Lymphs % (Man) Monocytes % (Manual) Eosinophils % (Manual) Basophils % (Manual) Metamyelocytes % Myelocytes % Promyelocytes % Blast Cells % Nucleated RBC % Seg Neutrophils # Man Band Neutrophils # Lymphocytes # (Manual) Abs React Lymphs (Man) Monocytes # (Manual) Eosinophils # (Manual) Basophils # (Manual) Metamyelocytes # Myelocytes # Promyelocytes # Blast Cells # WBC Morphology Hypersegmented Neuts Hyposegmented Neuts Hypogranular Neuts Smudge Cells Toxic Granulation Toxic Vacuolation Dohle Bodies Pelger-Huet Anomaly Cherelle Rods Platelet Estimate Clumped Platelets Plt Clumps, EDTA Large Platelets Giant Platelets Platelet Satelliting Plt Morphology Comment RBC Morphology Dimorphic RBCs Polychromasia Hypochromasia Poikilocytosis Anisocytosis Microcytosis Macrocytosis Spherocytes Pappenheimer Bodies Sickle Cells Target Cells Tear Drop Cells Ovalocytes Helmet Cells [place] Bodies [place] Rings [place] Cells Bite Cells Crenated Cell Elliptocytes Acanthocytes (Spur) Rouleaux Hemoglobin C Crystals Schistocytes Malaria parasites John Bodies Hem Pathologist Commnt Sodium Potassium Chloride Carbon Dioxide Anion Gap BUN Creatinine Estimated GFR BUN/Creatinine Ratio Glucose Calcium Magnesium Total Bilirubin Direct Bilirubin Indirect Bilirubin AST ALT Alkaline Phosphatase Total Creatine Kinase CK-MB (CK-2) CK-MB (CK-2) Rel Index Total Protein Albumin Albumin/Globulin Ratio Urine Color Urine Turbidity Urine pH Ur Specific [place] Urine Protein Urine Glucose (UA) Urine Ketones Urine Blood Urine Nitrite Urine Bilirubin Urine Urobilinogen Ur Leukocyte Esterase Urine WBC (Auto) Urine RBC (Auto) Urine Mucus Urine Opiates Screen Presumptive negative Urine Methadone Screen Presumptive negative Ur Barbiturates Screen Presumptive negative Ur Phencyclidine Scrn Presumptive negative Ur Amphetamines Screen Presumptive negative U Benzodiazepines Scrn Presumptive negative Urine Cocaine Screen Presumptive negative U Marijuana (THC) Screen Presumptive positive Drugs of Abuse Note Disclamer Critical care attestation.: If time is entered above; I have spent that time in minutes in the direct care of this critically ill patient, excluding procedure time. ED Disposition Clinical Impression: Viral illness, Hypokalemia, Acute URI Neutropenia Qualifiers: Neutropenia type: unspecified Qualified Code(s): D70.9 - Neutropenia, unspecified Disposition: DC-01 TO HOME OR SELFCARE Is pt being admited?: No Does the pt Need Aspirin: No Condition: Stable Instructions: Viral Syndrome (ED), Hypokalemia (ED), Acute Bronchitis (ED) Additional Instructions: Follow-up care is essential. HIV testing is recommended. Return to the emergency department any significant headache, fever, vomiting, neck discomfort. Prescriptions: Sulfamethoxazole/Trimethoprim [Bactrim DS TAB] 1 each PO BID #14 tablet Referrals: [facility] [Primary Care Provider] - 3-5 Days [facility] [Provider Group] - 3-5 Days [facility] [Outside] - 3-5 Days [facility] [Outside] - 3-5 Days Time of Disposition: 10:39
[2019-09-05] MEDS ORDERED: ACETAMINOPHEN 325 MG TAB PO ONE (06:29)
[2019-09-05 07:30] LABS: Hematocrit 45.2 % (35.5-45.6); Hemoglobin 15.1 gm/dl (11.8-15.2); Mean Corpuscular HGB Conc 34 % (32-34); Mean Corpuscular Volume 90 fl (84-94); Platelet Count 161 K/mm3 (140-440); Red Blood Count 5.06 M/mm3 (3.65-5.03); Red Cell Distribution Width 12.9 % (13.2-15.2)
[2019-09-05 07:55] LABS: Creatine Kinase MB 2.2 ng/mL (0.0-4.0)
[2019-09-05 07:58] LABS: Alanine Aminotransferase 21 units/L (7-56); Albumin 4.4 g/dL (3.9-5); BUN/Creatinine Ratio 12; Blood Urea Nitrogen 13 mg/dL (9-20); Calcium 9.1 mg/dL (8.4-10.2); Hemolysis Index 10
[2019-09-05 07:59] LABS: Bilirubin,Urine NEG (Negative); Blood,Urine NEG (Negative); Color,Urine Yellow (Yellow); Mucus,Urine FEW /HPF
[2019-09-05 08:02] LABS: Bilirubin,Direct < 0.2 mg/dL (0-0.2)
[2019-09-05 09:15] LABS: Amphetamine Screen,Urine PRESUMPTIVE NEGATIVE; Benzodiazepines Screen,Urine PRESUMPTIVE NEGATIVE; Cocaine Screen,Urine PRESUMPTIVE NEGATIVE; Methadone Screen,Urine PRESUMPTIVE NEGATIVE; Opiate Screen,Urine PRESUMPTIVE NEGATIVE
[2019-09-05 09:31] LABS: Cannabinoid Screen,Urine PRESUMPTIVE POSITIVE
[2019-09-05 09:46] VITALS: BP 125/58
[2019-09-05 10:07] LABS: Eosinophils % (Manual) 0 % (0.0-4.3); Total Cells Counted 100
[2019-09-05 10:08] LABS: Platelet Estimate Consistent w Auto; RBC Morphology Normal
[2019-09-05] MEDS ORDERED: POTASSIUM CHLORIDE ER 20 MEQ TAB PO ONE (10:37)
== END 2019-09-05 11:00 | disposition home or self-care (01) ==
LOC: ED 05:32
DX: J06.9 Acute upper respiratory infection, unspecified (principal); B34.9 Viral infection, unspecified; E87.6 Hypokalemia; D70.9 Neutropenia, unspecified; J45.909 Unspecified asthma, uncomplicated; Z79.899 Other long term (current) drug therapy; Z91.041 Radiographic dye allergy status; Z91.013 Allergy to seafood
CPT/HCPCS: 36415; 80048; 80076; 80307; 81001; 82550; 82553; 83735; 85007; 85025